=== PATIENT | female | born 1990 | race Caucasian/White ===

== ENCOUNTER → 2016-06-01 | Outpatient (CLI) | payer BC | LOC: MW.CHFP 10:54 | PROVIDERS: ATTEND Physician Assistant | DX: J02.9 Acute pharyngitis, unspecified (principal) | CPT/HCPCS: 87081; 87880 ==

== ENCOUNTER 2017-07-20 07:56 | Emergency (ER) | payer BC, OTHER ==
--- NOTE | 2017-07-20 08:14 | EDM.PDOC ---
ED HPI GENERAL MEDICAL PROBLEM - General Chief Complaint: ENT Problem Stated Complaint: SORE THROAT Time Seen by Provider: 07/20/17 08:12 Source of Information: Reports: Patient - History of Present Illness INITIAL COMMENTS - FREE TEXT/NARRATIVE: HISTORY AND PHYSICAL: History of present illness: 27-year-old female presenting to the emergency department with chief complaint of sore throat 2 days. Patient states 2 days ago she began to have a sore throat just gradually gotten worse. She has pain with swallowing and has associated ear fullness bilaterally. She also states that she's had some diarrhea. She denies any fever , chills, malaise, nausea, vomiting, dysuria, hematuria, leg pain, chest pain, shortness breath, syncopal episodes, palpitations, or focal neurologic deficits. Review of systems: As per history of present illness and below otherwise all systems reviewed and negative. Past medical history: As per history of present illness and as reviewed below otherwise noncontributory. Surgical history: As per history of present illness and as reviewed below otherwise noncontributory. Social history: No reported history of drug or alcohol abuse. Family history: As per history of present illness and as reviewed below otherwise noncontributory. Physical exam: HEENT: Atraumatic, normocephalic, pupils reactive, negative for conjunctival pallor or scleral icterus, mucous membranes moist, throat erythematous with bilateral tonsillar mild enlargement and mild exudative findings., neck supple, submandibular and anterior cervical nodes are mildly enlarged and tender to palpation., trachea midline. Lungs: Clear to auscultation, breath sounds equal bilaterally, chest nontender. Heart: S1S2, regular, negative for clicks, rubs, or JVD. Abdomen: Soft, nondistended, nontender. Negative for masses or hepatosplenomegaly. Negative for costovertebral tenderness. Pelvis: Stable nontender. Genitourinary: Deferred. Rectal: Deferred. Extremities: Atraumatic, negative for cords or calf pain. Neurovascular unremarkable. Neuro: Awake, alert, oriented. Cranial nerves II through XII unremarkable. Cerebellum unremarkable. Motor and sensory unremarkable throughout. Exam nonfocal. Diagnostics: Rapid strep Therapeutics: Z-Zen Impression: Strep pharyngitis/tonsillitis Plan: Rapid strep was positive. This was explained to the patient. She was prescribed a Z-Zen. She is instructed to use Tylenol for fevers maximum dose 4000 mg daily. She should follow-up with her primary care provider next week and return to emergency department if she has any new or worsening symptoms. Patient was discharged in good condition with prescription in above instructions. Throat Pain Score (Numeric/FACES): 4 - Related Data Allergies Allergy/AdvReac Type Severity Reaction Status Date / Time No Known Allergies Allergy Verified 07/20/17 08:07 Home Meds: Home Meds Albuterol Sulfate [Proair Hfa] 2 puff INH ASDIRECTED 07/20/17 [History] Norgestimate-Ethinyl Estradiol [Sprintec 28 Day Tablet] 1 tab PO DAILY 07/20/17 [History] Past Medical History Respiratory History: Reports: Asthma Social & Family History - Family History Family Medical History: Noncontributory - Tobacco Use Smoking Status *Q: Never Smoker - Caffeine Use Caffeine Use: Reports: Coffee - Recreational Drug Use Recreational Drug Use: No ED ROS GENERAL - Review of Systems Review Of Systems: See Below ED EXAM, GENERAL - Physical Exam Exam: See Below Course - Vital Signs Last Recorded V/S: Last Vital Signs Temp 96.5 F 07/20/17 08:05 Pulse 91 07/20/17 08:05 Resp 18 07/20/17 08:05 BP 134/94 H 07/20/17 08:05 Pulse Ox - Orders/Labs/Meds Orders: Active Orders 24 hr Category Date Time Status STREP SCRN A RAPID W CULT CONF [RM] Stat Lab 07/20/17 08:15 Ordered Departure - Departure Time of Disposition: 08:44 Disposition: Home, Self-Care 01 Condition: Good Clinical Impression: Acute streptococcal tonsillitis - Discharge Information Referrals: PCP,None [Primary Care Provider] - Forms: ED Department Discharge Additional Instructions: My general discharge The following information is given to patients seen in the emergency department who are being discharged to home. This information is to outline your options for follow-up care. We provide all patients seen in our emergency department with a follow-up referral. The need for follow-up, as well as the timing and circumstances, are variable depending upon the specifics of your emergency department visit. If you don't have a primary care physician on staff, we will provide you with a referral. We always advise you to contact your personal physician following an emergency department visit to inform them of the circumstance of the visit and for follow-up with them and/or the need for any referrals to a consulting specialist. The emergency department will also refer you to a specialist when appropriate. This referral assures that you have the opportunity for follow-up care with a specialist. All of these measure are taken in an effort to provide you with optimal care, which includes your follow-up. Under all circumstances we always encourage you to contact your private physician who remains a resource for coordinating your care. When calling for follow-up care, please make the office aware that this follow-up is from your recent emergency room visit. If for any reason you are refused follow-up, please contact the [facility] Emergency Department at and asked to speak to the emergency department charge nurse. [facility] [address] [place] [id number] - My Orders Last 24 Hours: My Active Orders 07/20/17 08:15 STREP SCRN A RAPID W CULT CONF [RM] Stat - Assessment/Plan Last 24 Hours: My Active Orders 07/20/17 08:15 STREP SCRN A RAPID W CULT CONF [RM] Stat
== END 2017-07-20 08:55 | disposition home or self-care (01) ==
LOC: MW.ED 07:56
DX: J03.00 Acute streptococcal tonsillitis, unspecified (principal); Z79.899 Other long term (current) drug therapy
CPT/HCPCS: 87880; 99283

== ENCOUNTER 2019-03-04 17:02 | Inpatient (IN) | payer OTHER ==
[2019-03-04] MEDS ORDERED: Sodium Chloride 0.9% 10 ML SDV IV PRN (17:59)
[2019-03-04] MEDS ORDERED: Butorphanol 1 MG/ML SDV IVPUSH PRN (17:59)
[2019-03-04] MEDS ORDERED: Lidocaine 1% 50 ML MDV INJECT PRN (17:59)
[2019-03-04] MEDS ORDERED: Ondansetron 4 MG/2 ML SDV IVPUSH PRN (17:59)
[2019-03-04] MEDS ORDERED: Methylergonovine 0.2 MG/1 ML Amp IM PRN (17:59)
[2019-03-04] MEDS ORDERED: Water For Irrigation,Sterile 1,000 ML Container IRR PRN (17:59)
[2019-03-04] MEDS ORDERED: Carboprost Tromethamine 250 MCG/1 ML Amp IM PRN (17:59)
[2019-03-04] MEDS ORDERED: Sodium Chloride 0.9% 10 ML Syringe FLUSH PRN (17:59)
[2019-03-04] MEDS ORDERED: Misoprostol 200 MCG Tab PO PRN (17:59)
[2019-03-04] MEDS ORDERED: Terbutaline 1 MG/ML SDV SUBCUT PRN (17:59)
[2019-03-04] MEDS ORDERED: Tranexamic Acid 1,000 MG in Sodium Chloride 0.9% 100 ML IV PRN (17:59)
[2019-03-04] MEDS ORDERED: Misoprostol 25 MCG (1/4 of 100 MCG) Tab VAG PRN (17:59)
[2019-03-04] MEDS ORDERED: Oxytocin/0.9 % Sodium Chloride 30 UNIT/500 ML BAG IV SCH ×2 (18:00)
[2019-03-04] MEDS ORDERED: Ampicillin 2 GM in Sodium Chloride 0.9% 100 ML IV ONE (18:00)
[2019-03-04 20:39] LABS: CARBON DIOXIDE,CO2 20.4 mmol/L (21.0-32.0); CHLORIDE,CL 105 mmol/L (98-107); SODIUM,NA 139 mmol/L (136-145)
[2019-03-04 20:52] LABS: BLOOD UREA NITROGEN,BUN 10 mg/dL (7.0-18.0); GLUCOSE RANDOM 121 mg/dL (74-106)
[2019-03-04] MEDS ORDERED: Labetalol 100 MG/20 ML MDV IVPUSH ONE (22:17)
[2019-03-04] MEDS: Ampicillin 1 GM in Sodium Chloride 0.9% 50 ML IV SCH (22:57)
[2019-03-04] MEDS: Misoprostol 25 MCG (1/4 of 100 MCG) Tab VAG PRN (22:59)
[2019-03-05] MEDS ORDERED: Labetalol 100 MG/20 ML MDV IVPUSH ONE (00:04)
[2019-03-05] MEDS ORDERED: Magnesium Sulfate/Water 4 GM in Premix Bag 1 BAG IV ONE (00:06)
[2019-03-05] MEDS ORDERED: Calcium Gluconate 10% 1 GM/10 ML SDV IV PRN (00:06)
[2019-03-05] MEDS: Ampicillin 1 GM in Sodium Chloride 0.9% 50 ML IV SCH ×4 (03:21→14:40)
[2019-03-05] MEDS: Misoprostol 25 MCG (1/4 of 100 MCG) Tab VAG PRN ×2 (03:21→07:10)
[2019-03-05] MEDS: Magnesium Sulfate/Water 20 GM/500 ML BAG IV SCH ×2 (11:55→22:24)
--- NOTE | 2019-03-05 12:58 | PCM.PREANE ---
Preanesthetic Assessment - Anesthesia/Transfusion/Family Hx Anesthesia History: Prior Anesthesia Without Reaction Family History of Anesthesia Reaction: No Transfusion History: No Prior Transfusion(s) - Review of Systems General: No Symptoms Pulmonary: No Symptoms Cardiovascular: No Symptoms Gastrointestinal: No Symptoms Neurological: No Symptoms Other: Reports: None - Physical Assessment Height: 5 ft 9 in Weight: 153.371 kg ASA Class: 3 Mental Status: Alert & Oriented x3 Airway Class: Mallampati = 2 Dentition: Reports: Normal Dentition Thyro-Mental Finger Breadths: 3 Mouth Opening Finger Breadths: 3 ROM/Head Extension: Full Lungs: Clear to Auscultation, Normal Respiratory Effort Cardiovascular: Regular Rate, Regular Rhythm - Lab Values: Laboratory Last Values WBC 13.74 K/uL (4.0-11.0) H 03/04/19 18:40 RBC 4.54 M/uL (4.30-5.90) 03/04/19 18:40 Hgb 12.9 g/dL (12.0-16.0) 03/04/19 18:40 Hct 38.4 % (36.0-46.0) 03/04/19 18:40 MCV 84.6 fL (80.0-98.0) 03/04/19 18:40 MCH 28.4 pg (27.0-32.0) 03/04/19 18:40 MCHC 33.6 g/dL (31.0-37.0) 03/04/19 18:40 RDW Std Deviation 41.3 fl (28.0-62.0) 03/04/19 18:40 RDW Coeff of Letitia 14 % (11.0-15.0) 03/04/19 18:40 Plt Count 324 K/uL (150-400) 03/04/19 18:40 MPV 10.40 fL (7.40-12.00) 03/04/19 18:40 Nucleated RBC % 0.0 /100WBC 03/04/19 18:40 Nucleated RBCs # 0 K/uL 03/04/19 18:40 Sodium 139 mmol/L (136-145) 03/04/19 18:40 Potassium 4.0 mmol/L (3.5-5.1) 03/04/19 18:40 Chloride 105 mmol/L (98-107) 03/04/19 18:40 Carbon Dioxide 20.4 mmol/L (21.0-32.0) L 03/04/19 18:40 BUN 10 mg/dL (7.0-18.0) 03/04/19 18:40 Creatinine 0.8 mg/dL (0.6-1.0) 03/04/19 18:40 Est Cr Clr Drug Dosing 110.39 mL/min 03/04/19 18:40 Estimated GFR (MDRD) > 60.0 ml/min 03/04/19 18:40 Glucose 121 mg/dL (74-106) H 03/04/19 18:40 Uric Acid 5.7 mg/dL (2.6-7.2) 03/04/19 18:40 Calcium 8.5 mg/dL (8.5-10.1) 03/04/19 18:40 Magnesium 5.4 mg/dL (1.8-2.4) H 03/05/19 11:40 Total Bilirubin 0.2 mg/dL (0.2-1.0) 03/04/19 18:40 AST 19 IU/L (15-37) 03/04/19 18:40 ALT 25 IU/L (14-63) 03/04/19 18:40 Alkaline Phosphatase 130 U/L (46-116) H 03/04/19 18:40 Total Protein 6.7 g/dL (6.4-8.2) 03/04/19 18:40 Albumin 2.7 g/dL (3.4-5.0) L 03/04/19 18:40 Globulin 4.0 g/dL (2.6-4.0) 03/04/19 18:40 Albumin/Globulin Ratio 0.7 (0.9-1.6) L 03/04/19 18:40 Ur Random Creatinine 107.9 mg/dL 03/04/19 20:40 U Random Total Protein 16.5 mg/dL (<11.9) H 03/04/19 20:40 Protein/Creatinin Ratio 0.2 03/04/19 20:40 Blood Type O POSITIVE 03/04/19 18:40 Antibody Screen NEGATIVE 03/04/19 18:40 - Allergies Allergies/Adverse Reactions: Allergies Allergy/AdvReac Type Severity Reaction Status Date / Time No Known Allergies Allergy Verified 07/20/17 08:07 - Anesthesia Plan Free Text/Narrative:: Pre-Eclampsia with Mag infusion. - Acknowledgements Anesthesia Type Planned: Epidural Pt an Appropriate Candidate for the Planned Anesthesia: Yes Alternatives and Risks of Anesthesia Discussed w Pt/Guardian: Yes Pt/Guardian Understands and Agrees with Anesthesia Plan: Yes PreAnesthesia Questionnaire - Past Health History Medical/Surgical History: Denies Medical/Surgical History HEENT History: Reports: None Cardiovascular History: Reports: Other (See Below) (Pre-eclampsia) Respiratory History: Reports: Asthma Gastrointestinal History: Reports: GERD Genitourinary History: Reports: None [employer] History: Reports: : 1 Para: 0 LMP (Approximate): Musculoskeletal History: Reports: None Neurological History: Reports: None Psychiatric History: Reports: Depression Endocrine/Metabolic History: Reports: Obesity/BMI 30+ (Super Morbid obesity) Hematologic History: Reports: None Immunologic History: Reports: None Oncologic (Cancer) History: Reports: None Dermatologic History: Reports: None - Infectious Disease History Infectious Disease History: Reports: None - Past Surgical History HEENT Surgical History: Reports: Adenoidectomy, Other (See Below) (Oral Surgery) - SUBSTANCE USE Smoking Status *Q: Never Smoker Tobacco Use Within Last Twelve Months: No Second Hand Smoke Exposure: No Recreational Drug Use History: No - HOME MEDS Home Medications: Home Meds Albuterol Sulfate [Proair Hfa] 2 puff INH ASDIRECTED 07/20/17 [History] Norgestimate-Ethinyl Estradiol [Sprintec 28 Day Tablet] 1 tab PO DAILY 07/20/17 [History] - CURRENT (IN HOUSE) MEDS Current Meds: Current Medications Butorphanol Tartrate (Stadol) 1 mg IVPUSH ASDIRECTED PRN PRN Reason: Pain Last Admin: 03/05/19 08:10 Dose: 1 mg Calcium Gluconate (Calcium Gluconate) 1 gm IV ASDIRECTED PRN PRN Reason: respiratory distress Carboprost Tromethamine (Hemabate Ds) 250 mcg IM ASDIRECTED PRN PRN Reason: Post Hemorrhage Lactated Ringer's (Ringers, Lactated) 1,000 mls @ 150 mls/hr IV ASDIRECTED FELICIANO Oxytocin/Sodium Chloride (Oxytocin 30 Unit/500 Ml-Ns) 30 unit in 500 mls @ 999 mls/hr IV TITRATE FELICIANO Oxytocin/Sodium Chloride (Oxytocin 30 Unit/500 Ml-Ns) 30 unit in 500 mls @ 2 mls/hr IV TITRATE [facility]; Protocol Last Admin: 03/05/19 12:19 Dose: 2 munits/min, 2 mls/hr Tranexamic Acid 1,000 mg/ (Sodium Chloride) 110 mls @ 660 mls/hr IV ONETIME PRN PRN Reason: Bleeding Ampicillin Sodium 1 gm/ Sodium (Chloride) 50 mls @ 100 mls/hr IV Q4H [facility] Last Admin: 03/05/19 11:36 Dose: 100 mls/hr Magnesium Sulfate (Magnesium Sulfate In Water Premix) 20 gm in 500 mls @ 50 mls /hr IV ASDIRECTED [facility] Last Admin: 03/05/19 11:55 Dose: 2 gm/hr, 50 mls/hr Lidocaine HCl (Xylocaine 1%) 50 ml INJECT ONETIME PRN PRN Reason: Laceration repair Methylergonovine Maleate (Methergine) 0.2 mg IM ASDIRECTED PRN PRN Reason: Post Hemorrhage Misoprostol (Cytotec) 200 mcg PO ONETIME PRN PRN Reason: Post Hemorrhage Misoprostol (Cytotec) 25 mcg VAG ONETIME PRN PRN Reason: Cervical Ripening Last Admin: 03/04/19 18:57 Dose: 25 mcg Misoprostol (Cytotec) 25 mcg VAG Q4H PRN PRN Reason: Cervical Ripening Last Admin: 03/05/19 07:10 Dose: 25 mcg Ondansetron HCl (Zofran) 4 mg IVPUSH Q6H PRN PRN Reason: Nausea/Vomiting Sodium Chloride (Saline Flush) 10 ml FLUSH ASDIRECTED PRN PRN Reason: Keep Vein Open Sodium Chloride (Normal Saline) 10 ml IV ASDIRECTED PRN PRN Reason: IV Use Sterile Water (Sterile Water For Irrigation) 1,000 ml IRR ASDIRECTED PRN PRN Reason: delivery Terbutaline Sulfate (Brethine) 0.25 mg SUBCUT ASDIRECTED PRN PRN Reason: Tacysystole Discontinued Medications Ampicillin Sodium 2 gm/ Sodium (Chloride) 100 mls @ 200 mls/hr IV ONETIME ONE Stop: 03/04/19 18:29 Last Admin: 03/04/19 18:55 Dose: 200 mls/hr Magnesium Sulfate 4 gm/ Premix 100 mls @ 300 mls/hr IV BOLUS ONE Stop: 03/05/19 00:25 Last Admin: 03/05/19 01:27 Dose: 300 mls/hr Labetalol HCl (Normodyne) 20 mg IVPUSH ONETIME ONE; Protocol Stop: 03/04/19 22:18 Last Admin: 03/04/19 22:40 Dose: Not Given Labetalol HCl (Normodyne) 40 mg IVPUSH ONETIME ONE; Protocol Stop: 03/05/19 00:05 Last Admin: 03/05/19 00:37 Dose: 40 mg
[2019-03-05] MEDS: Lactated Ringers 1,000 ML IV SCH ×2 (13:39→14:38)
[2019-03-05] MEDS ORDERED: SODIUM CHLORIDE 0.9% IRR PRN (16:50)
--- NOTE | 2019-03-05 17:00 | PCM.PRNOTE ---
- Free Text/Narrative Note: Anes Note I was called to assess this patient. The epidural pumps is reporting air in line. I flushed the epidural infusion line and restarted the pumpst the same settings. Conchis reports good analgesia with sensory changes to umbilical line. Time with patient [id number] Thanh Gomez CRNA
[2019-03-05] MEDS ORDERED: oxyCODONE 5 MG Tab PO PRN (18:06)
[2019-03-05] MEDS ORDERED: Lanolin 100% Cream 7 GM Tube TOP PRN (18:06)
[2019-03-05] MEDS ORDERED: Witch Hazel Medicated Pads 40/Jar TOP PRN (18:06)
[2019-03-05] MEDS ORDERED: Aluminum Hydroxide/Magnesium Hydroxide/Simethicone Susp 30 ML Cup PO PRN (18:06)
[2019-03-05] MEDS ORDERED: Ibuprofen 800 MG Tab PO PRN (18:06)
[2019-03-05] MEDS ORDERED: Docusate Sodium 100 MG Cap PO PRN (18:06)
[2019-03-05] MEDS ORDERED: Acetaminophen 500 MG Tab PO PRN ×2 (18:06)
[2019-03-05] MEDS ORDERED: Ibuprofen 400 MG Tab PO PRN (18:06)
[2019-03-05] MEDS ORDERED: Benzocaine/Menthol 20%-0.5% Spray 78 GM Cannister TOP PRN (18:06)
[2019-03-05] MEDS ORDERED: Bisacodyl 10 MG Supp RECTAL PRN (18:06)
--- NOTE | 2019-03-05 18:15 | PCM.OPNOTE ---
- General Post-Op/Procedure Note Date of Surgery/Procedure: 03/05/19 Operative Procedure(s): /2nd MLL repaired Findings: Viable female APGARs 9, 9 weight pending. Spontaneous delivery intact placenta with 3V cord Pre Op Diagnosis: 39 week IUP. Preeclampsia Post-Op Diagnosis: Same Anesthesia Technique: Epidural Primary Surgeon: Ivanna Bhatia EBL in mLs: 400 Complications: none known Condition: Stable Free Text/Narrative:: Dictation [id number]
--- NOTE | 2019-03-05 18:59 | OR ---
SURGEON: Ivanna Bhatia M.D. DATE OF PROCEDURE: 03/05/2019 PREOPERATIVE DIAGNOSES: 1. A 39 weeks' intrauterine . 2. Preeclampsia. POSTOPERATIVE DIAGNOSES: 1. A 39 weeks' intrauterine . 2. Preeclampsia. PROCEDURE: Spontaneous vaginal delivery, second-degree midline laceration repaired. PRIMARY SURGEON: Ivanna Bhatia MD. ANESTHESIA: Epidural. ESTIMATED BLOOD LOSS: 400 mL. COMPLICATIONS: None known. FINDINGS: Viable female. scores 9 at one minute and 9 at five minutes. Weight is pending. Spontaneous delivery, intact placenta, 3-vessel cord. DISPOSITION: to nursery, mom in LDRP. PROCEDURE DETAILS: Jaki is a 28-year-old, G1, P0, at 39 weeks' gestation who presents on the evening of 03/05/2019 for elective induction of labor. However, upon monitoring her, she was noted to have elevated blood pressures that then became severe. Therefore, further analysis was performed, showed no proteinuria. Remainder of labs were normal including LFTs, platelets, and hemoglobin, but given the severe pressures, was initiated on magnesium prophylaxis. She has also been placed on group B strep prophylaxis for group B strep positive status. The patient underwent Cytotec dosing for an unfavorable cervix. The following morning shortly before 7 a.m., she was still found to be 2 cm, 60% effaced, minus 3 station. Underwent mechanical bulb ripening along with the Cytotec followed by Pitocin. Shortly after noon, the bulb did extravasate. The patient was found to be 4 cm, 80% effaced, and minus 2 station. She became increasingly uncomfortable, underwent regional anesthesia in the form of epidural. heart tones were 120s with minimal variability as she was on the magnesium. The patient underwent regional anesthesia in the form of epidural, became more comfortable, and shortly thereafter underwent amniotomy. Clear fluid was returned. An IUPC and FSE were placed to help more closely monitor status and contractions. The patient continued to progress nicely, and shortly before 5 p.m., she was found to be 9.5 cm, began having some variable deceleration. She was already a +1 station. With the next few minutes, the patient progressed to complete, began pushing efforts, and while pushing, did have an episode where she became slightly unresponsive. Her vital signs remained completely normal during this time with normal saturation, normal pulse, heart tones remained stable. She quickly became coherent and was appropriately responsive to nursing staff. I arrived within a few minutes, and she was completely coherent, responsive. Cranial nerves 2 through 12 were grossly intact. Vital signs remained stable. heart tones remained stable in the 120s. She states that she felt like she just was not breathing properly and it sounds as though she almost had a bit of a vagal episode. Once the patient was feeling better, she began pushing efforts again and pushed quite readily to a +3 station. She was placed in modified dorsal lithotomy position and was prepped and draped in the usual aseptic manner. Continued quick pushing. With the next two contractions, was able to deliver the infant's head atraumatically spontaneously, followed by anterior shoulder, posterior shoulder, and remainder of the body without difficulty. The infant's oropharynx and nares were bulb suctioned. The infant was handed off to her mother with attending nursing staff at her side and nursery staff at her side. Cord arterial, cord venous, cord blood sampling obtained after a delay and the cord was clamped x2 and cut. Light pressure was applied while the placenta was delivered spontaneously intact. Vigorous fundal uterine massage was then applied while 30 units of Pitocin was delivered in 500 mL of IV fluid. Upon inspection of cervix, vaginal sidewalls, and perineum, there was found to be a first-degree right periurethral laceration, repaired using 3-0 Vicryl. There was also a second-degree midline laceration, repaired using 3-0 Vicryl in the usual fashion. During this interval, the patient does become slightly boggy and with fundal massage firms nicely, but still has a bit more bleeding than usual. Therefore, we will begin tranexamic acid bolus of 1 g. The patient remained stable. Her vital signs remained stable. She will continue magnesium recovery. Sponge, instrument, and needle count was correct. The patient remained in LDRP on magnesium recovery, to nursery. JUD / MARILYN /[id number]
--- NOTE | 2019-03-06 08:29 | PCM48HPAN ---
Post Anesthesia Note - EVALUATION WITHIN 48HRS OF ANESTHETIC Vital Signs in Normal Range: Yes Patient Participated in Evaluation: Yes Respiratory Function Stable: Yes Airway Patent: Yes Cardiovascular Function Stable: Yes Hydration Status Stable: Yes Pain Control Satisfactory: Yes Nausea and Vomiting Control Satisfactory: Yes Mental Status Recovered: Yes Vital Signs: Last Vital Signs Temp 36.2 C 03/06/19 07:40 Pulse 91 03/06/19 07:40 Resp 16 03/06/19 07:40 BP 122/72 03/06/19 07:40 Pulse Ox 98 03/06/19 07:40 - COMMENTS/OBSERVATIONS Free Text/Narrative:: Doing well. No problems noted post.
[2019-03-06] MEDS: Magnesium Sulfate/Water 20 GM/500 ML BAG IV SCH (08:57)
[2019-03-06 09:26] LABS: BLOOD UREA NITROGEN,BUN 9 mg/dL (7.0-18.0); CARBON DIOXIDE,CO2 25.7 mmol/L (21.0-32.0); CHLORIDE,CL 105 mmol/L (98-107); GLUCOSE RANDOM 90 mg/dL (74-106); POTASSIUM,K 4.1 mmol/L (3.5-5.1); SODIUM,NA 138 mmol/L (136-145)
[2019-03-06] MEDS: Ampicillin 1 GM in Sodium Chloride 0.9% 50 ML IV SCH (09:44)
--- NOTE | 2019-03-06 09:48 | PCM.PNPP ---
- General Info Date of Service: 03/06/19 Functional Status: Reports: Pain Controlled, Tolerating Diet, Ambulating, Urinating - Review of Systems General: Denies: Fever, Weakness, Fatigue Pulmonary: Denies: Shortness of Breath Cardiovascular: Denies: Chest Pain, Palpitations, Lightheadedness Gastrointestinal: Denies: Abdominal Pain, Nausea, Vomiting Genitourinary: Denies: Flank Pain Musculoskeletal: Reports: Back Pain (tail bone discomfort) Skin: Reports: No Symptoms Neurological: Denies: Confusion, Dizziness, Headache, Numbness Psychiatric: Reports: No Symptoms - General Info Date of Service: 03/06/19 - Patient Data Vital Signs - Most Recent: Last Vital Signs Temp 36.2 C 03/06/19 07:40 Pulse 91 03/06/19 07:40 Resp 16 03/06/19 07:40 BP 122/72 03/06/19 07:40 Pulse Ox 98 03/06/19 07:40 Weight - Most Recent: 153.371 kg I&O - Last 24 Hours: Intake & Output 03/05/19 03/06/19 03/06/19 22:59 06:59 14:59 Intake Total 1729 Output Total 1900 Balance -171 Lab Results - Last 24 Hours: Laboratory Results - last 24 hr 03/05/19 03/05/19 03/05/19 Range/Units 11:40 17:33 19:03 WBC (4.0-11.0) K/uL RBC (4.30-5.90) M/uL Hgb (12.0-16.0) g/dL Hct (36.0-46.0) % MCV (80.0-98.0) fL MCH (27.0-32.0) pg MCHC (31.0-37.0) g/dL RDW Std Deviation (28.0-62.0) fl RDW Coeff of Letitia (11.0-15.0) % Plt Count (150-400) K/uL MPV (7.40-12.00) fL Nucleated RBC % /100WBC Nucleated RBCs # K/uL Cord ABG pH 7.261 (7.18-7.38) Cord ABG Base Excess -8 (-10--2) Cord VBG pH 7.311 (7.25-7.45) Cord VBG Base Excess -7 (-10--2) Sodium (136-145) mmol/L Potassium (3.5-5.1) mmol/L Chloride (98-107) mmol/L Carbon Dioxide (21.0-32.0) mmol/L BUN (7.0-18.0) mg/dL Creatinine (0.6-1.0) mg/dL Est Cr Clr Drug Dosing mL/min Estimated GFR (MDRD) ml/min Glucose (74-106) mg/dL Calcium (8.5-10.1) mg/dL Magnesium 5.4 H 5.3 H (1.8-2.4) mg/dL Total Bilirubin (0.2-1.0) mg/dL AST (15-37) IU/L ALT (14-63) IU/L Alkaline Phosphatase (46-116) U/L Total Protein (6.4-8.2) g/dL Albumin (3.4-5.0) g/dL Globulin (2.6-4.0) g/dL Albumin/Globulin Ratio (0.9-1.6) 03/05/19 03/06/19 03/06/19 Range/Units 23:47 05:49 05:49 WBC 21.23 H (4.0-11.0) K/uL RBC 3.69 L (4.30-5.90) M/uL Hgb 10.4 L (12.0-16.0) g/dL Hct 31.7 L (36.0-46.0) % MCV 85.9 (80.0-98.0) fL MCH 28.2 (27.0-32.0) pg MCHC 32.8 (31.0-37.0) g/dL RDW Std Deviation 42.9 (28.0-62.0) fl RDW Coeff of Letitia 14 (11.0-15.0) % Plt Count 302 (150-400) K/uL MPV 10.40 (7.40-12.00) fL Nucleated RBC % 0.0 /100WBC Nucleated RBCs # 0 K/uL Cord ABG pH (7.18-7.38) Cord ABG Base Excess (-10--2) Cord VBG pH (7.25-7.45) Cord VBG Base Excess (-10--2) Sodium (136-145) mmol/L Potassium (3.5-5.1) mmol/L Chloride (98-107) mmol/L Carbon Dioxide (21.0-32.0) mmol/L BUN (7.0-18.0) mg/dL Creatinine (0.6-1.0) mg/dL Est Cr Clr Drug Dosing mL/min Estimated GFR (MDRD) ml/min Glucose (74-106) mg/dL Calcium (8.5-10.1) mg/dL Magnesium 5.3 H 5.6 H (1.8-2.4) mg/dL Total Bilirubin (0.2-1.0) mg/dL AST (15-37) IU/L ALT (14-63) IU/L Alkaline Phosphatase (46-116) U/L Total Protein (6.4-8.2) g/dL Albumin (3.4-5.0) g/dL Globulin (2.6-4.0) g/dL Albumin/Globulin Ratio (0.9-1.6) 03/06/19 Range/Units 05:49 WBC (4.0-11.0) K/uL RBC (4.30-5.90) M/uL Hgb (12.0-16.0) g/dL Hct (36.0-46.0) % MCV (80.0-98.0) fL MCH (27.0-32.0) pg MCHC (31.0-37.0) g/dL RDW Std Deviation (28.0-62.0) fl RDW Coeff of Letitia (11.0-15.0) % Plt Count (150-400) K/uL MPV (7.40-12.00) fL Nucleated RBC % /100WBC Nucleated RBCs # K/uL Cord ABG pH (7.18-7.38) Cord ABG Base Excess (-10--2) Cord VBG pH (7.25-7.45) Cord VBG Base Excess (-10--2) Sodium 138 (136-145) mmol/L Potassium 4.1 (3.5-5.1) mmol/L Chloride 105 (98-107) mmol/L Carbon Dioxide 25.7 (21.0-32.0) mmol/L BUN 9 (7.0-18.0) mg/dL Creatinine 0.8 (0.6-1.0) mg/dL Est Cr Clr Drug Dosing 110.39 mL/min Estimated GFR (MDRD) > 60.0 ml/min Glucose 90 (74-106) mg/dL Calcium 8.0 L (8.5-10.1) mg/dL Magnesium (1.8-2.4) mg/dL Total Bilirubin 0.2 (0.2-1.0) mg/dL AST 21 (15-37) IU/L ALT 21 (14-63) IU/L Alkaline Phosphatase 107 (46-116) U/L Total Protein 5.5 L (6.4-8.2) g/dL Albumin 2.2 L (3.4-5.0) g/dL Globulin 3.3 (2.6-4.0) g/dL Albumin/Globulin Ratio 0.7 L (0.9-1.6) Med Orders - Current: Current Medications Acetaminophen (Tylenol Extra Strength) 500 mg PO Q4H PRN PRN Reason: Pain Acetaminophen (Tylenol Extra Strength) 1,000 mg PO Q4H PRN PRN Reason: Pain Al Hydroxide/Mg Hydroxide (Mag-Al Plus) 30 ml PO Q8H PRN PRN Reason: Heartburn Benzocaine/Menthol (Dermoplast Pain Relief 20%-0.5% Cunningham) 78 gm TOP ASDIRECTED PRN PRN Reason: Perineal Comfort Measure Last Admin: 03/05/19 22:10 Dose: 1 canister Bisacodyl (Dulcolax) 10 mg RECTAL ONETIME PRN PRN Reason: Constipation Calcium Gluconate (Calcium Gluconate) 1 gm IV ASDIRECTED PRN PRN Reason: respiratory distress Carboprost Tromethamine (Hemabate Ds) 250 mcg IM ASDIRECTED PRN PRN Reason: Post Hemorrhage Docusate Sodium (Colace) 100 mg PO BID PRN PRN Reason: Constipation Emollient Ointment (Lansinoh Hpa) 0 gm TOP ASDIRECTED PRN PRN Reason: Sore Nipples Last Admin: 03/05/19 22:10 Dose: 1 gram Lactated Ringer's (Ringers, Lactated) 1,000 mls @ 150 mls/hr IV ASDIRECTED FELICIANO Last Admin: 01/02/20 14:38 Dose: 150 mls/hr Oxytocin/Sodium Chloride (Oxytocin 30 Unit/500 Ml-Ns) 30 unit in 500 mls @ 999 mls/hr IV TITRATE FELICIANO Oxytocin/Sodium Chloride (Oxytocin 30 Unit/500 Ml-Ns) 30 unit in 500 mls @ 2 mls/hr IV TITRATE FELICIANO; Protocol Last Titration: 03/05/19 17:13 Dose: 4 munits/min, 4 mls/hr Tranexamic Acid 1,000 mg/ (Sodium Chloride) 110 mls @ 660 mls/hr IV ONETIME PRN PRN Reason: Bleeding Last Admin: 03/05/19 18:00 Dose: 660 mls/hr Magnesium Sulfate (Magnesium Sulfate In Water Premix) 20 gm in 500 mls @ 50 mls /hr IV ASDIRECTED FELICIANO Last Admin: 03/06/19 08:57 Dose: 2 gm/hr, 50 mls/hr Ibuprofen (Motrin) 400 mg PO Q4H PRN PRN Reason: Pain Ibuprofen (Motrin) 800 mg PO Q6H PRN PRN Reason: Pain Lidocaine HCl (Xylocaine 1%) 50 ml INJECT ONETIME PRN PRN Reason: Laceration repair Ondansetron HCl (Zofran) 4 mg IVPUSH Q6H PRN PRN Reason: Nausea/Vomiting Oxycodone HCl (Oxycodone) 5 mg PO Q2H PRN PRN Reason: Pain Sodium Chloride (Saline Flush) 10 ml FLUSH ASDIRECTED PRN PRN Reason: Keep Vein Open Sodium Chloride (Normal Saline) 10 ml IV ASDIRECTED PRN PRN Reason: IV Use Sodium Chloride (Sodium Chloride 0.9%) 500 ml IRR ASDIRECTED PRN PRN Reason: Amnioinfusion Sterile Water (Sterile Water For Irrigation) 1,000 ml IRR ASDIRECTED PRN PRN Reason: delivery Last Admin: 03/05/19 18:14 Dose: 1,000 ml Witch Lynda (Tucks) 1 pad TOP ASDIRECTED PRN PRN Reason: comfort care Last Admin: 03/05/19 22:10 Dose: 1 pack Discontinued Medications Butorphanol Tartrate (Stadol) 1 mg IVPUSH ASDIRECTED PRN PRN Reason: Pain Last Admin: 03/05/19 08:10 Dose: 1 mg Ampicillin Sodium 2 gm/ Sodium (Chloride) 100 mls @ 200 mls/hr IV ONETIME ONE Stop: 03/04/19 18:29 Last Admin: 03/04/19 18:55 Dose: 200 mls/hr Ampicillin Sodium 1 gm/ Sodium (Chloride) 50 mls @ 100 mls/hr IV Q4H FELICIANO Last Admin: 03/06/19 09:44 Dose: Not Given Magnesium Sulfate 4 gm/ Premix 100 mls @ 300 mls/hr IV BOLUS ONE Stop: 03/05/19 00:25 Last Admin: 03/05/19 01:27 Dose: 300 mls/hr Fentanyl/Bupivacaine HCl ([id number] 2 Mcg/Ml-0.125%) Confirm Administered Dose 100 mls @ as directed .ROUTE .STK-MED ONE Stop: 03/05/19 13:05 Last Admin: 03/06/19 09:43 Dose: Not Given Labetalol HCl (Normodyne) 20 mg IVPUSH ONETIME ONE; Protocol Stop: 03/04/19 22:18 Last Admin: 03/04/19 22:40 Dose: Not Given Labetalol HCl (Normodyne) 40 mg IVPUSH ONETIME ONE; Protocol Stop: 03/05/19 00:05 Last Admin: 03/05/19 00:37 Dose: 40 mg Methylergonovine Maleate (Methergine) 0.2 mg IM ASDIRECTED PRN PRN Reason: Post Hemorrhage Misoprostol (Cytotec) 200 mcg PO ONETIME PRN PRN Reason: Post Hemorrhage Misoprostol (Cytotec) 25 mcg VAG ONETIME PRN PRN Reason: Cervical Ripening Last Admin: 03/04/19 18:57 Dose: 25 mcg Misoprostol (Cytotec) 25 mcg VAG Q4H PRN PRN Reason: Cervical Ripening Last Admin: 03/05/19 07:10 Dose: 25 mcg Terbutaline Sulfate (Brethine) 0.25 mg SUBCUT ASDIRECTED PRN PRN Reason: Tacysystole - Interaction Support Person: - Recovery Exam Fundal Tone: Firm Fundal Level: At Umbilicus Fundal Placement: Midline Lochia Amount: Small Lochia Color: Rubra/Red Perineum Description: Intact, Minimal Bruising/Swelling Episiotomy/Laceration: Approximated Bladder Status: Voiding Urinary Elimination: Voided - Exam General: Alert, Oriented Lungs: Normal Respiratory Effort Cardiovascular: Regular Rate, Regular Rhythm GI/Abdominal Exam: Normal Bowel Sounds, Soft Extremities: Pedal Edema (trace). No: Jaya's Sign Skin: Warm, Dry, Intact Neurological: No New Focal Deficit Psy/Mental Status: Alert, Normal Affect, Normal Mood - Problem List & Annotations (1) Vaginal delivery SNOMED Code(s): 415207714 Code(s): O80 - ENCOUNTER FOR FULL-TERM UNCOMPLICATED DELIVERY Status: Acute Current Visit: Yes (2) Pre-eclampsia SNOMED Code(s): 612041391 Code(s): O14.90 - UNSPECIFIED PRE-ECLAMPSIA, UNSPECIFIED TRIMESTER Status: Acute Current Visit: Yes - Problem List Review Problem List Initiated/Reviewed/Updated: Yes - My Orders Last 24 Hours: My Active Orders 03/05/19 16:50 Sodium Chloride 0.9% 500 ml IRR ASDIRECTED PRN 03/05/19 18:06 Patient Status [ADT] Routine Notify Provider Vital Signs [RC] ASDIRECTED Acetaminophen [Tylenol Extra Strength] 1,000 mg PO Q4H PRN Acetaminophen [Tylenol Extra Strength] 500 mg PO Q4H PRN Alum Hydrox/Mag Hydrox/Simeth [Mag-Al Plus] 30 ml PO Q8H PRN Benzocaine/Menthol [Dermoplast Pain Relief 20%-0.5% Cunningham] 78 gm TOP ASDIRECTED PRN Docusate Sodium [Colace] 100 mg PO BID PRN Ibuprofen [Motrin] 400 mg PO Q4H PRN Ibuprofen [Motrin] 800 mg PO Q6H PRN Lanolin [Lansinoh HPA] See Dose Instructions TOP ASDIRECTED PRN Witch Lynda [Tucks] 1 pad TOP ASDIRECTED PRN bisacodyL [Dulcolax] 10 mg RECTAL ONETIME PRN oxyCODONE 5 mg PO Q2H PRN Assess Lochia [WOMSER] Per Unit Routine Assess Uterine Involution [WOMSER] Per Unit Routine Peripheral IV Discontinue [OM.PC] Routine 03/05/19 18:07 Ice Therapy [OM.PC] Per Unit Routine Perineal Care [OM.PC] Per Unit Routine Sitz Bath [OM.PC] Per Unit Routine - Assessment Assessment:: PPD 1 status post /2nd MLL repaired Severe preeclampsia on magesium - Plan Plan:: VS are stable, BPs within normal range. Good diuresis. Labs are reassuring. Continue magnesium prophylaxis, if remains stable, discontinue at [address] Pemberton will cover over the weekend--patient is aware. Continue cares.
--- NOTE | 2019-03-07 11:47 | PCM.PNPP ---
- General Info Date of Service: 03/07/19 Functional Status: Reports: Pain Controlled, Tolerating Diet, Ambulating, Urinating - Review of Systems General: Reports: No Symptoms HEENT: Reports: No Symptoms Pulmonary: Reports: No Symptoms Cardiovascular: Reports: No Symptoms Gastrointestinal: Reports: No Symptoms Genitourinary: Reports: No Symptoms Musculoskeletal: Reports: No Symptoms Skin: Reports: No Symptoms Neurological: Reports: No Symptoms Psychiatric: Reports: No Symptoms - Patient Data Vital Signs - Most Recent: Last Vital Signs Temp 36.4 C 03/07/19 04:51 Pulse 86 03/07/19 04:51 Resp 18 03/07/19 04:51 BP 124/81 03/07/19 04:51 Pulse Ox 96 03/07/19 04:51 Weight - Most Recent: 324 lb 15.382 oz I&O - Last 24 Hours: Intake & Output 03/06/19 03/07/19 03/07/19 22:59 06:59 14:59 Intake Total 400 Output Total 1700 Balance -1300 Lab Results - Last 24 Hours: Laboratory Results - last 24 hr 03/04/19 03/06/19 Range/Units 18:40 13:07 Magnesium 5.7 H (1.8-2.4) mg/dL RPR Non Reactive (NonRea<1:1) Med Orders - Current: Current Medications Acetaminophen (Tylenol Extra Strength) 500 mg PO Q4H PRN PRN Reason: Pain Acetaminophen (Tylenol Extra Strength) 1,000 mg PO Q4H PRN PRN Reason: Pain Last Admin: 03/07/19 04:50 Dose: 1,000 mg Al Hydroxide/Mg Hydroxide (Mag-Al Plus) 30 ml PO Q8H PRN PRN Reason: Heartburn Benzocaine/Menthol (Dermoplast Pain Relief 20%-0.5% [place]) 78 gm TOP ASDIRECTED PRN PRN Reason: Perineal Comfort Measure Last Admin: 03/05/19 22:10 Dose: 1 canister Bisacodyl (Dulcolax) 10 mg RECTAL ONETIME PRN PRN Reason: Constipation Calcium Gluconate (Calcium Gluconate) 1 gm IV ASDIRECTED PRN PRN Reason: respiratory distress Carboprost Tromethamine (Hemabate Ds) 250 mcg IM ASDIRECTED PRN PRN Reason: Post Hemorrhage Docusate Sodium (Colace) 100 mg PO BID PRN PRN Reason: Constipation Emollient Ointment (Lansinoh Hpa) 0 gm TOP ASDIRECTED PRN PRN Reason: Sore Nipples Last Admin: 03/05/19 22:10 Dose: 1 gram Lactated Ringer's (Ringers, Lactated) 1,000 mls @ 150 mls/hr IV ASDIRECTED FELICIANO Last Admin: 03/05/19 14:38 Dose: 150 mls/hr Oxytocin/Sodium Chloride (Oxytocin 30 Unit/500 Ml-Ns) 30 unit in 500 mls @ 999 mls/hr IV TITRATE FELICIANO Oxytocin/Sodium Chloride (Oxytocin 30 Unit/500 Ml-Ns) 30 unit in 500 mls @ 2 mls/hr IV TITRATE FELICIANO; Protocol Last Titration: 03/05/19 17:13 Dose: 4 munits/min, 4 mls/hr Tranexamic Acid 1,000 mg/ (Sodium Chloride) 110 mls @ 660 mls/hr IV ONETIME PRN PRN Reason: Bleeding Last Admin: 03/05/19 18:00 Dose: 660 mls/hr Magnesium Sulfate (Magnesium Sulfate In Water Premix) 20 gm in 500 mls @ 50 mls /hr IV ASDIRECTED [facility] Last Admin: 03/06/19 08:57 Dose: 2 gm/hr, 50 mls/hr Ibuprofen (Motrin) 400 mg PO Q4H PRN PRN Reason: Pain Ibuprofen (Motrin) 800 mg PO Q6H PRN PRN Reason: Pain Lidocaine HCl (Xylocaine 1%) 50 ml INJECT ONETIME PRN PRN Reason: Laceration repair Ondansetron HCl (Zofran) 4 mg IVPUSH Q6H PRN PRN Reason: Nausea/Vomiting Oxycodone HCl (Oxycodone) 5 mg PO Q2H PRN PRN Reason: Pain Sodium Chloride (Saline Flush) 10 ml FLUSH ASDIRECTED PRN PRN Reason: Keep Vein Open Sodium Chloride (Normal Saline) 10 ml IV ASDIRECTED PRN PRN Reason: IV Use Sodium Chloride (Sodium Chloride 0.9%) 500 ml IRR ASDIRECTED PRN PRN Reason: Amnioinfusion Sterile Water (Sterile Water For Irrigation) 1,000 ml IRR ASDIRECTED PRN PRN Reason: delivery Last Admin: 03/05/19 18:14 Dose: 1,000 ml Witch Lynda (Tucks) 1 pad TOP ASDIRECTED PRN PRN Reason: comfort care Last Admin: 03/05/19 22:10 Dose: 1 pack Discontinued Medications Butorphanol Tartrate (Stadol) 1 mg IVPUSH ASDIRECTED PRN PRN Reason: Pain Last Admin: 03/05/19 08:10 Dose: 1 mg Ampicillin Sodium 2 gm/ Sodium (Chloride) 100 mls @ 200 mls/hr IV ONETIME ONE Stop: 03/04/19 18:29 Last Admin: 03/04/19 18:55 Dose: 200 mls/hr Ampicillin Sodium 1 gm/ Sodium (Chloride) 50 mls @ 100 mls/hr IV Q4H FELICIANO Last Admin: 03/06/19 09:44 Dose: Not Given Magnesium Sulfate 4 gm/ Premix 100 mls @ 300 mls/hr IV BOLUS ONE Stop: 03/05/19 00:25 Last Admin: 03/05/19 01:27 Dose: 300 mls/hr Fentanyl/Bupivacaine HCl (Wfgrhnpq-Ceqws-Pz 2 Mcg/Ml-0.125%) Confirm Administered Dose 100 mls @ as directed .ROUTE .STK-MED ONE Stop: 03/05/19 13:05 Last Admin: 03/06/19 09:43 Dose: Not Given Labetalol HCl (Normodyne) 20 mg IVPUSH ONETIME ONE; Protocol Stop: 03/04/19 22:18 Last Admin: 03/04/19 22:40 Dose: Not Given Labetalol HCl (Normodyne) 40 mg IVPUSH ONETIME ONE; Protocol Stop: 03/05/19 00:05 Last Admin: 03/05/19 00:37 Dose: 40 mg Methylergonovine Maleate (Methergine) 0.2 mg IM ASDIRECTED PRN PRN Reason: Post Hemorrhage Misoprostol (Cytotec) 200 mcg PO ONETIME PRN PRN Reason: Post Hemorrhage Misoprostol (Cytotec) 25 mcg VAG ONETIME PRN PRN Reason: Cervical Ripening Last Admin: 03/04/19 18:57 Dose: 25 mcg Misoprostol (Cytotec) 25 mcg VAG Q4H PRN PRN Reason: Cervical Ripening Last Admin: 03/05/19 07:10 Dose: 25 mcg Terbutaline Sulfate (Brethine) 0.25 mg SUBCUT ASDIRECTED PRN PRN Reason: Tacysystole - Interaction Disposition, : at Bedside Interaction: Holding Feeding: Breastfed ; Nursed Well Support Person: - Recovery Exam Fundal Tone: Firm Fundal Level: 1 Fingerbreadths Below Umbilicus Fundal Placement: Midline Lochia Amount: Scant Lochia Color: Rubra/Red Perineum Description: Intact, Minimal Bruising/Swelling Episiotomy/Laceration: Approximated Bladder Status: Voiding Urinary Elimination: Voided - Exam General: Alert, Oriented, Cooperative, No Acute Distress HEENT: Pupils Equal, Pupils Reactive Neck: Supple, Trachea Midline Lungs: Normal Respiratory Effort GI/Abdominal Exam: Normal Bowel Sounds, Soft, Non-Tender, No Distention Extremities: Normal Inspection, Normal Range of Motion, Non-Tender, No Pedal Edema Skin: Warm, Dry, Intact Wound/Incisions: Healing Well Neurological: No New Focal Deficit Psy/Mental Status: Alert, Normal Affect, Normal Mood - Problem List Review Problem List Initiated/Reviewed/Updated: Yes - My Orders Last 24 Hours: My Active Orders 03/07/19 11:36 Ready for Discharge [RC] PER UNIT ROUTINE - Assessment Assessment:: PPD 2 status post . Severe preeclampsia s/p magnesium, currently stable and doing well. - Plan Plan:: VS are stable, BP normotensive to mild range. No s/s of worsening preeclampsia. Hgb 10.4, bleeding minima. No s/s of anemia. Advised patient to start iron supplement daily. Pain controlled with motrin well, continue PNV. Stable for discharge home today.
== END 2019-03-07 13:00 | disposition home or self-care (01) | DRG 807 ==
LOC: MW.OBCHECK 17:02 → MW.OB 17:02 → MW.OBCHECK 17:59 → OBSVTOIN 03-05 17:33 → MW.OB 03-05 21:08
PROVIDERS: ADMIT Obstetrics & Gynecology; ATTEND Obstetrics & Gynecology
PROC: 10E0XZZ Delivery of Products of Conception, External Approach (ICD-10-PCS; principal; 2019-03-05)
PROC: 0KQM0ZZ Repair Perineum Muscle, Open Approach (ICD-10-PCS; 2019-03-05)
PROC: 10907ZC Drainage of Amniotic Fluid, Therapeutic from Products of Conception, Via Natural or Artificial Opening (ICD-10-PCS; 2019-03-05)
DX: O14.14 Severe pre-eclampsia complicating childbirth (principal); Z37.0 Single live birth; O99.214 Obesity complicating childbirth; E66.01 Morbid (severe) obesity due to excess calories; O70.1 Second degree perineal laceration during delivery; Z3A.39 39 weeks gestation of pregnancy
CPT/HCPCS: 36415; 51702; 59025; 59200; 59409; 80053; 82570; 82803; 83735; 84156; 84550; 85027; 86593; 86850; 86900; 86901; A9270-GY; J0290; J0595; J2590; J3475; J3490; J7050; J7120